=== PATIENT | female | born 1980 | race Caucasian/White ===

== ENCOUNTER → 2019-08-28 13:49 | Outpatient (CLI) | payer BC ==
[2014-09-14 13:06] VITALS: BMI 51.4
[~2019-08-28 13:49] MED LIST: DYAZIDE 37.5/251 CAP PO; PAXIL30 MG PO; VALIUM 2 MG TAB2 MG PO; [UNRECOGNIZED DRUG - OTHER]
[2019-08-28 14:12] LABS: BASOPHILS 0 % (0-2); EOSINOPHILS 3.9 % (0-7); HEMATOCRIT 37.8 % (36.0-48.0); HEMOGLOBIN 12.6 g/dL (12-16); IMMATURE GRANULOCYTES 0.4 % (0-5); LYMPHOCYTES 34.7 % (15-50); MCHC 33.3 g/dL (31.0-37.0); MCV 80.9 fL (80.0-100.0); MEAN PLATELET VOLUME 10.3 fL (7.4-10.4); MONOCYTES 6.1 % (2-11); NEUTROPHILS 54.9 % (40-80); PLATELET COUNT 329 10x3/uL (130-400); RBC 4.67 10x6/uL (4.00-5.40); RDW 14.4 % (11.5-14.5); WBC 10.9 10x3/uL (4.8-10.8)
[2019-08-28 14:16] LABS: CREATININE - SERUM 0.8 mg/dL (0.6-1.3)
== END | disposition home or self-care (01) ==
LOC: D.LABREF 13:49
PROVIDERS: ATTEND Surgery
DX: Z48.815 Encounter for surgical aftercare following surgery on the digestive system (principal)